=== PATIENT | male | born 1985 | race Caucasian/White ===

== ENCOUNTER 2019-01-24 05:21 | Emergency (ER) | payer OTHER ==
[2019-01-24] MEDS ORDERED: Acetaminophen/oxyCODONE 325-5 MG Tab PO ONE (06:14)
[2019-01-24] MEDS ORDERED: Bacitracin Oint 1 GM U/D Packet TOP ONE (06:17)
--- NOTE | 2019-01-24 06:21 | EDM.PDOC ---
ED HPI GENERAL MEDICAL PROBLEM - General Chief Complaint: Lower Extremity Injury/Pain Stated Complaint: DROP WEIGHT ON LEFT FOOT Time Seen by Provider: 01/24/19 06:15 Source of Information: Reports: Patient History Limitations: Reports: No Limitations - History of Present Illness INITIAL COMMENTS - FREE TEXT/NARRATIVE: pt was lifting weights and he dropped a weight on his small toe on the left. He smashed the toe. Onset: Today, Sudden Duration: Hour(s): Location: Reports: Lower Extremity, Left Associated Symptoms: Reports: No Other Symptoms Treatments [employer]: Reports: Dressing(s) Left Toe-Little Pain Score (Numeric/FACES): 4 - Related Data Allergies Allergy/AdvReac Type Severity Reaction Status Date / Time No Known Allergies Allergy Verified 01/24/19 05:37 Home Meds: Home Meds NK [No Known Home Meds] 01/24/19 [History] Past Medical History Respiratory History: Reports: Asthma Musculoskeletal History: Reports: Fracture Other Musculoskeletal History: wrist fracture - Past Surgical History GI Surgical History: Reports: Appendectomy Other Musculoskeletal Surgeries/Procedures:: ACL repair x 2 Social & Family History - Family History Family Medical History: Noncontributory - Tobacco Use Smoking Status *Q: Never Smoker - Caffeine Use Caffeine Use: Reports: Coffee, Energy Drinks - Recreational Drug Use Recreational Drug Use: No Review of Systems - Review of Systems Review Of Systems: See Below Constitutional: Reports: No Symptoms Eyes: Reports: No Symptoms Ears: Reports: No Symptoms Nose: Reports: No Symptoms Mouth/Throat: Reports: No Symptoms Respiratory: Reports: No Symptoms Cardiovascular: Reports: No Symptoms GI/Abdominal: Reports: No Symptoms Genitourinary: Reports: No Symptoms Musculoskeletal: Reports: No Symptoms Skin: Reports: Other (pt has a injury to the small toe. ) Neurological: Reports: No Symptoms ED EXAM, GENERAL - Physical Exam Exam: See Below Free Text/Narrative:: pt arrived with a avulsion injury to the outside of the left small toe. He dropped a weight on the toe. Exam Limited By: No Limitations General Appearance: Alert, Anxious, Moderate Distress Extremities: Other (pt dropped a 10 lb weight on the small toe on the left. he avulsed the lateral aspect of the small toe. a xray was obtained of the toe which showed a communited fracture of the very tip of the toe. He had the nail intact. ) Course - Vital Signs Last Recorded V/S: Last Vital Signs Temp 36.9 C 01/24/19 05:41 Pulse 69 01/24/19 05:41 Resp 16 01/24/19 05:41 BP 150/89 H 01/24/19 05:41 Pulse Ox 99 01/24/19 05:41 - Orders/Labs/Meds Meds: Medications Discontinued Medications Generic Name Dose Route Start Last Admin Trade Name Freq PRN Reason Stop Dose Admin Bacitracin 1 dose 01/24/19 06:17 01/24/19 06:46 Bacitracin Oint 1 Gm TOP 01/24/19 06:18 1 dose ONETIME ONE Administration Lidocaine HCl 5 ml 01/24/19 06:16 01/24/19 06:46 Xylocaine-Mpf 1% INJECT 01/24/19 06:17 5 ml ONETIME ONE Administration Oxycodone/Acetaminophen 1 tab 01/24/19 06:14 01/24/19 06:20 Percocet 325-5 Mg PO 01/24/19 06:15 1 tab ONETIME ONE Administration - Re-Assessments/Exams Free Text/Narrative Re-Assessment/Exam: 01/24/19 07:01 The area was injected with lidocaine. The soft tissue was brought together with 5-0 chromic. The skin was closed with 5-0 prolene. He will be dressed and adrienne tapped to the toe next to it. He will have bacatracin applied now and then he will use a dry dressing after that. He is current with his tetanus. Departure - Departure Time of Disposition: 06:50 Disposition: Home, Self-Care 01 Condition: Fair Clinical Impression: Avulsion injury - Discharge Information Referrals: PCP,None [Primary Care Provider] - Forms: ED Department Discharge Care Plan Goals: keep dry, no further ointments, dress with adaptic daily ,suture removal in 8_ 10 days, appt with Dr Seth in 5 days. keflex 500mg tid, norco 5/325 q6h prn for pain.
--- NOTE | 2019-01-24 06:30 | CRLCR ---
INDICATION: Trauma to the little toe. COMPARISON: None. TECHNIQUE: Two views of the left foot. FINDINGS: Comminuted fracture distal phalanx of the small toe. No evidence of intra-articular extension. Soft tissue swelling about the small toe. Joint alignment is within normal limits. Joint spaces are preserved. IMPRESSION: Comminuted fracture of the distal phalanx of the small toe. Dictated by Jl Raymond MD @ Jan 24 2019 6:23AM Signed by Dr. Jl Raymond @ Jan 24 2019 6:27AM
== END 2019-01-24 07:07 | disposition home or self-care (01) ==
LOC: JP.ED 05:21
DX: S92.532A Displaced fracture of distal phalanx of left lesser toe(s), initial encounter for closed fracture (principal); J45.909 Unspecified asthma, uncomplicated; W20.8XXA Other cause of strike by thrown, projected or falling object, initial encounter; Y93.89 Activity, other specified
CPT/HCPCS: 12001; 73620; 99283; A9270; J2001